=== PATIENT | female | born 1935 | race Caucasian/White ===

== ENCOUNTER 2019-12-26 19:05 | Inpatient (IN) | payer MEDICARE, BC ==
[~2019-12-26] VITALS: Ht 157.5 cm; Wt 50.3 kg
--- NOTE | 2019-12-26 19:15 | NUR ---
Patient BIB private ambulance from [facility] on 5150 hold for GD to be medically cleared to be transfered to MHU. Patient upon arrival easily agitated. A/Ox2. No distress noted.
[2019-12-26] MEDS ORDERED: ALLO300T2 PO (19:18)
[2019-12-26] MEDS ORDERED: INDO75CA3 PO (19:18)
[2019-12-26] MEDS ORDERED: ATOR40TA29 PO (19:18)
[2019-12-26] MEDS ORDERED: AMLO2.5T4 PO (19:18)
[2019-12-26] MEDS ORDERED: CARV6.25 PO (19:18)
[2019-12-26] MEDS ORDERED: ESCI5TAB PO (19:18)
--- NOTE | 2019-12-26 19:28 | NUR ---
MEDICALLY CLEARED BY DR HOOKER.
--- NOTE | 2019-12-26 20:35 | NUR ---
Transfered to MHU via gurny with no distress noted.
[2019-12-26] MEDS ORDERED: MAG HYDROX/AL HYDROX/SIMETH 30 ML LIQUID UDC PO PRN (20:45)
[2019-12-26] MEDS ORDERED: TEMAZEPAM 7.5 MG CAPSULE PO PRN (20:45)
[2019-12-26] MEDS ORDERED: LORAZEPAM 0.5 MG TABLET PO PRN (20:45)
[2019-12-26] MEDS ORDERED: MAGNESIUM HYDROXIDE 30 ML LIQUID UDC PO PRN (20:45)
[2019-12-26 21:01] VITALS: BP 163/99
--- NOTE | 2019-12-27 07:00 | NUR ---
Admitting Note GPS/NSG A 84 yr old female sent to [facility] on a 5150 for Grave Disability Under the care of Dr. Townsend psychiatrist and SILVIO Holt. Patient currently resides in [facility]. According to information provided by previous medical records as well as the hold patient has not slept, no eating, poor historian, refusing medication. Patient began to exhibit bizarre behavior with paranoid thoughts. Patient has history of Psychiatry. Upon arrival patient appeared to be alert to time, place, and situation however upon further discussion pt was abusive towards staff, patient was also giving tangental responses. Pt given Advisement and Patient Rights Handbook, as well as a verbal explanation of unit rules, patient was calm and cooperative during this process. Pt will require reinforcement and observation she is at risk for falls, bilateral hip replacement. To endorse to a.m. shift to notification of admission. Plan of Care inititiated and will continue to monitor for Safety.
[2019-12-27 07:37] LABS: ALANINE AMINOTRANSFERASE 7 U/L (14-59); ALKALINE PHOSPHATASE 61 U/L (50-136); ASPARTATE AMINOTRANSFERASE 12 U/L (15-37); BILIRUBIN,TOTAL 0.3 mg/dL (0.2-1.0); CARBON DIOXIDE 28 mmol/L (21-32); CHLORIDE 106 mmol/L (98-107); CREATININE 1.7 mg/dL (0.6-1.3); GLUCOSE 104 mg/dL (74-106); POTASSIUM 4.2 mmol/L (3.5-5.1); TOTAL PROTEIN, SERUM 6.7 g/dL (6.4-8.2); UREA NITROGEN, BLOOD 27 mg/dL (7-18)
[2019-12-27] MEDS: CARVEDILOL 6.25 MG TABLET PO SCH ×2 (08:00→18:00)
[2019-12-27] MEDS: AMLODIPINE 2.5 MG TABLET PO SCH (09:00)
[2019-12-27] MEDS ORDERED: INDOMETHACIN 75 MG PO SCH (09:00)
[2019-12-27] MEDS ORDERED: ALLOPURINOL 300 MG TABLET PO SCH (09:00)
--- NOTE | 2019-12-27 10:03 | NUR ---
Social Work Family Contact: This story writer attempted to contact both daughters and they were both unavailable. This story writer left a voicemail. Addendum: 12/27/19 at 1123 by STORM MARTINEZ Donald ([phone]) and Katie ([phone])
--- NOTE | 2019-12-27 10:03 | NUR ---
Social Work Initial Discharge Plan: [place] [address]; ([phone]). Patient's daughters Katie ([phone]) and Donald ([phone]) is involved in patient's care. This information writer attempted to contact both daughters and they were both unavailable. This information writer left a voicemail. This information writer contacted [facility] ([phone]) and stated that admin is unavailable at the moment and will contact this information writer back. This information writer will work with MD and treatment team to coordinate proper discharge plan.
--- NOTE | 2019-12-27 10:26 | NUR ---
Firearms Report: Theater Projectionist completed and submitted a [facility] firearms report for 5150 grave disability certification. A copy of report has been placed in patient chart.
--- NOTE | 2019-12-27 12:05 | NUR ---
Social Work Discharge Plan: This telegraphic typewriter operator chief spoke with Laney david ([phone]) from [facility] stated that upon discharge when pt is stable they will take pt back.
--- NOTE | 2019-12-27 13:26 | NUR ---
STORM Family Contact: SW spoke with patient's daughter Donald ([phone]) and discussed treatment plan and discharge plan.
[2019-12-27 15:14] VITALS: BP 146/88
[2019-12-27] MEDS: risperiDONE 0.5 MG TABLET PO SCH (21:00)
[2019-12-27] MEDS: ATORVASTATIN 40 MG TABLET PO SCH (21:03)
--- NOTE | 2019-12-28 03:43 | NUR ---
GPS/ Pt was received in bed a/ox3, no SOB, breathing even and no c/o pain. Pt denied SI or intent to harm self or others. Per endorsement pt had been refusing meds. At routine med pass pt refused Risperdal 0.5mg but took Lipitor, made aware of risk of refusing meds as order with acknowledged understanding. Pt requested a printing material for the medication before she will take it and was given but pt still refused. No aggressive behavior but Pt had been having angry, insulting and verbally abusive with some staffs and cooperative with others during this shift, refused vital check. Encouraged to vent out feelings and to request for technical staff assistant. At this time pt is resting and will continue monitor with Q/15 minute head count ongoing, and safety precaution in place.
--- NOTE | 2019-12-28 06:58 | NUR ---
Pt Risperdal 0.5mg was not given due to pt fall asleep.
[2019-12-28 07:30] VITALS: BP 133/76
--- NOTE | 2019-12-28 07:52 | NUR ---
GPS: Nursing Notes: Severe Agitation: Patient is awake and overly disruptive by constantly shouting, violent outburst without provocation, using racial statement toward staff, verbal abusive, threatening staff with a law nahun, resistant with nursing care, restless behavior, setting limits, but unable to be redirected, "You need to be fucking deported..", refusing her medications PO, "You are a fucken bastard..", continue to be overly disruptive by constantly shouting, refusing to eat, shouting for water when she has a bottle of water next to her, poor impulse control, poor anger management, gets easily irritable when redirected, continue with her abusive language toward staff, threatening staff, Dr. Kristian del valle, continue to monitor for safety, continue with treatment plan.
[2019-12-28] MEDS: CARVEDILOL 6.25 MG TABLET PO SCH ×2 (08:00→17:39)
[2019-12-28] MEDS ORDERED: HALOPERIDOL LACTATE 5 MG/1 ML VIAL IM ONE (08:00)
[2019-12-28] MEDS ORDERED: LORAZEPAM 2 MG/1 ML VIAL IM ONE (08:00)
[2019-12-28] MEDS: AMLODIPINE 2.5 MG TABLET PO SCH (08:12)
[2019-12-28] MEDS: risperiDONE 0.5 MG TABLET PO SCH ×2 (08:12→21:24)
--- NOTE | 2019-12-28 08:12 | NUR ---
GPS: Nursing Notes: Chemical Restraint: Patient continue to be overly disruptive by constantly shouting, poor anger management, poor impulse control, violent outburst without provocation, verbal abusive, threatening staff, using racial statements toward staff, "I am going to get you fucken deported.... Cock sucker..", loud and angry affect, restless behavior, trying to slap staff when getting near to assist her, setting limits, but unable to be redirected, R=18, Dr. Townsend called and ordered: Haldol 1mg IM and Ativan 1mg IM STAT for severe agitated behavior, medications IM given at this time, continue to monitor for safety, continue with treatment plan.
[2019-12-28] MEDS ORDERED: ALLOPURINOL 300 MG TABLET PO SCH (09:00)
[2019-12-28] MEDS ORDERED: HALOPERIDOL LACTATE 5 MG/1 ML VIAL IM STA (13:41)
[2019-12-28] MEDS ORDERED: LORAZEPAM 2 MG/1 ML VIAL IM STA (13:41)
[2019-12-28] MEDS ORDERED: HYDROCORTISONE 1% CREAM 30 GM TUBE TP PRN (13:45)
--- NOTE | 2019-12-28 13:45 | NUR ---
GPS: Nursing Notes: Severe Agitation: Violent outburst without provocation, throw milk and juice on staff face and body, verbally abusive toward staff, "Cock sucker...", resistant with nursing care, threatening staff, hitting staff when getting near her to assist her with ADL's, continue to refuse her medications PO, "Get away... Asshole..", gets easily irritable when redirected, setting limits, but unable to be redirected, restless behavior toward staff, Dr. Kristian del valle, continue to monitor for safety, continue with treatment plan.
[2019-12-28] MEDS ORDERED: MINERAL OIL/PETROLATUM,WHITE 57 GM TUBE TP PRN (14:00)
--- NOTE | 2019-12-28 14:00 | NUR ---
GPS: Nursing Notes: Chemical Restraint: Patient is awake and overly disruptive by constantly shouting profanities, throw milk and juice to staff face and body, verbal abusive, using profanities, and racial statements toward staff, violent outburst without provocation, poor impulse control, restless behavior, trying to hit staff when getting near her to assist her, continue to be refusing her PO medications, medications IM were given at this time, R=18, continue to monitor for safety, continue with treatment plan.
--- NOTE | 2019-12-28 14:06 | NUR ---
GPS: Nursing Notes: Reassessment of Chemical Restraint: Patient is responding to her name, became calm, but angry affect, resistant with nursing care, continue to refuse her medications PO, medications IM STAT were effective, R=18, continue to monitor for safety, continue with treatment plan. Addendum: 12/28/19 at 1414 by JUAN MANUEL BLEVINS LVN Above Nursing Notes: Reassessment of Chemical Restraint charting is for 08:32 hours
--- NOTE | 2019-12-28 14:30 | NUR ---
GPS: Nursing Notes: Reassessment of Chemical Restraint: Patient is awake and responding to her name, angry affect, but calmed, resistant with nursing care, refusing to participate in therapeutic groups, refusing her PO medications, continue to monitor for safety, R=18, medications IM were effective, continue with treatment plan.
[2019-12-28 16:00] VITALS: BP 164/96
[2019-12-28] MEDS: ATORVASTATIN 40 MG TABLET PO SCH (21:24)
--- NOTE | 2019-12-29 02:56 | NUR ---
RECEIVED PATIENT AWAKE IN BED.APPEARS DEPRESSED BUT BRIEFLY ENGAGED WITH STAFF. NO DISRUPTIVE BEHAVIOR NOTED THROUGH THE SHIFT. SHE TOOK HER MEDICATIONS WITH LOTS OF ENCOURAGEMENT.VISUAL CHECKS MADE ON HER FOR SAFETY.WILL CONTINUE TO MONITOR.
--- NOTE | 2019-12-29 06:33 | NUR ---
SHE SLEPT WELL FOR 9HOURS
[2019-12-29] MEDS: CARVEDILOL 6.25 MG TABLET PO SCH ×2 (08:00→17:28)
[2019-12-29] MEDS: AMLODIPINE 2.5 MG TABLET PO SCH (08:27)
[2019-12-29] MEDS: risperiDONE 0.5 MG TABLET PO SCH ×2 (08:27→20:45)
--- NOTE | 2019-12-29 15:20 | NUR ---
GPS: Nursing Notes: Non-compliance with Medication: Patient is awake and responding to her name, poor anger management, resistant with nursing care, doing angry gestures with her face when medication is offer to patient, refusing her medication, believes that there is nothing wrong with her, stated "I did not finish reading the material about the medication..Until then I will take that pill..", when asked how long would take her to finish reading the material, she stated "You deserve to be deported...", pressured speech and angry affect, believes that we do not care about her, unable to formulate a viable plan for self care, continue with treatment plan.
[2019-12-29 16:00] VITALS: BP 137/81
[2019-12-29] MEDS: ATORVASTATIN 40 MG TABLET PO SCH (20:14)
--- NOTE | 2019-12-29 20:46 | NUR ---
Patient refused 2100 dose of Risperidone. Educated patient on importance of taking the medication. Patient still refused.
[2019-12-30 07:30] VITALS: BP 121/66
[2019-12-30] MEDS: CARVEDILOL 6.25 MG TABLET PO SCH ×2 (08:41→17:16)
[2019-12-30] MEDS: AMLODIPINE 2.5 MG TABLET PO SCH (08:41)
[2019-12-30] MEDS: risperiDONE 0.5 MG TABLET PO SCH ×2 (08:42→20:43)
[2019-12-30] MEDS: prednisoLONE ACET 1% OPHT DROP 5 ML BOTTLE EACHEYE PRN ×2 (11:23→17:17)
[2019-12-30] MEDS: ACETAMINOPHEN 325 MG TABLET PO PRN (11:23)
--- NOTE | 2019-12-30 14:42 | NUR ---
GPS: Nursing Care: Non-Compliance with Medication: Patient is awake and responding to her name, refusing her Risperdal tablet, stated "No, I am not going to take it because I do not agree with the doctor..", needy at times, refusing to participate in therapeutic groups, ambulatory with fww, continue to monitor for safety, unable to formulate a viable plan for self care, continue with treatment plan.
[2019-12-30 16:00] VITALS: BP 138/62
[2019-12-30 20:00] VITALS: BP 151/79
[2019-12-30] MEDS: ATORVASTATIN 40 MG TABLET PO SCH (20:43)
--- NOTE | 2019-12-31 03:53 | NUR ---
RECEIVED PATIENT AWAKE IN BED. APPEARS DEPRESSED BUT BRIEFLY ENGAGED WITH STAFF. NO DISRUPTIVE BEHAVIOR NOTED THROUGH THE SHIFT. SHE IS MED SELECTIVE. SHE CLAIMS THE RISPERDAL "IS IN DISPUTE AND SINCE AM AN LATEX CASTER WE WILL SEE HOW THAT GOES.' RISKS AND BENEFIT EXPLAINED.VISUAL CHECKS MADE ON HER FOR SAFETY.WILL CONTINUE TO MONITOR.
[2019-12-31] MEDS: PANTOPRAZOLE SODIUM 40 MG TABLET.DR PO SCH ×2 (06:32→06:33)
--- NOTE | 2019-12-31 06:44 | NUR ---
SLEPT FOR 5:30 HOURS. CONTINUES TO REFUSE HER MEDICATIONS.
[2019-12-31 07:30] VITALS: BP 113/76
[2019-12-31] MEDS: LINAGLIPTIN 5 MG TABLET PO SCH (08:44)
[2019-12-31] MEDS: prednisoLONE ACET 1% OPHT DROP 5 ML BOTTLE EACHEYE PRN ×2 (08:44→17:26)
[2019-12-31] MEDS: risperiDONE 0.5 MG TABLET PO SCH ×2 (08:44→20:52)
[2019-12-31] MEDS: CARVEDILOL 6.25 MG TABLET PO SCH ×2 (09:17→17:26)
[2019-12-31] MEDS: AMLODIPINE 2.5 MG TABLET PO SCH (09:17)
[2019-12-31 12:58] LABS: BASOPHILS # (AUTO) 0.2 K/uL (0.0-8.0); BASOPHILS % (AUTO) 1.5 % (0.0-2.0); EOSINOPHILS # (AUTO) 1.2 K/uL (0.0-0.7); HEMATOCRIT 40.9 % (31.2-41.9); HEMOGLOBIN 13.4 g/dL (10.9-14.3); LYMPHOCYTES # (AUTO) 2.9 K/uL (20.0-40.0); LYMPHOCYTES % (AUTO) 19.5 % (20.5-51.5); MEAN CORPUSCULAR HEMOGLOBIN 29.3 uug (24.7-32.8); MEAN CORPUSCULAR HGB CONC 33 g/dL (32.3-35.6); MEAN CORPUSCULAR VOLUME 89.3 fL (75.5-95.3); MONOCYTES # (AUTO) 1.1 K/uL (2.0-10.0); MONOCYTES % (AUTO) 7.2 % (0.0-11.0); NEUTROPHILS # (AUTO) 9.6 K/uL (1.8-8.9); NEUTROPHILS % (AUTO) 63.8 % (38.5-71.5); PLATELET COUNT (AUTO) 330 K/uL (179-408); RED BLOOD CELL COUNT(AUTO) 4.57 MIL/uL (3.63-4.92)
[2019-12-31 13:18] LABS: ALANINE AMINOTRANSFERASE 11 U/L (14-59); ALKALINE PHOSPHATASE 59 U/L (50-136); ASPARTATE AMINOTRANSFERASE 13 U/L (15-37); BILIRUBIN,TOTAL 0.4 mg/dL (0.2-1.0); CARBON DIOXIDE 26 mmol/L (21-32); CHLORIDE 105 mmol/L (98-107); CREATININE 1.6 mg/dL (0.6-1.3); GLUCOSE 110 mg/dL (74-106); MAGNESIUM 1.9 mg/dL (1.8-2.4); PHOSPHOROUS 3.6 mg/dL (2.5-4.9); POTASSIUM 4.5 mmol/L (3.5-5.1); UREA NITROGEN, BLOOD 24 mg/dL (7-18)
[2019-12-31] MEDS: ACETAMINOPHEN 325 MG TABLET PO PRN (14:53)
[2019-12-31 16:00] VITALS: BP 109/72
--- NOTE | 2019-12-31 17:11 | NUR ---
patient argumentative and verbally abusive to staff, non cooperative, needed alot of redirection patient not taking any of her psych medication, RIESE hearing schedule tomorrow at 1200 MD aware
[2019-12-31] MEDS: ACETAMINOPHEN/CODEINE 300-30 MG TABLET PO PRN (17:31)
--- NOTE | 2019-12-31 17:45 | NUR ---
GPS: Nursing Notes: Non-Compliance With Medication: Patient is awake and responding to her name, gets easily irritable when redirected, verbal abusive, using profanity toward staff constantly, "Cock sucker.. Fat pig...", "You are low life asshole..", constantly making derogatory remarks toward staff, refusing her Risperdal PO, overly demanding at times, taking her antihypertensive medication, but throwing the cup on the floor stating "Pick it up... That is your job.. Fat pig... Cock sucker..", redirected, but stating "Shut the fuck up..", trying to scratch staff on the face, trying to scratch the other staff on the arm, poor anger management, unable to formulate a viable plan for self care, continue with treatment plan.
[2019-12-31 20:41] VITALS: BP 124/67
[2019-12-31] MEDS: ATORVASTATIN 40 MG TABLET PO SCH (20:46)
[2020-01-01] MEDS: PANTOPRAZOLE SODIUM 40 MG TABLET.DR PO SCH (07:00)
[2020-01-01 07:30] VITALS: BP 118/55
[2020-01-01] MEDS: ACETAMINOPHEN/CODEINE 300-30 MG TABLET PO PRN ×2 (07:32→15:56)
[2020-01-01] MEDS: risperiDONE 0.5 MG TABLET PO SCH ×2 (08:34→21:31)
[2020-01-01] MEDS: LINAGLIPTIN 5 MG TABLET PO SCH (08:34)
[2020-01-01] MEDS: CARVEDILOL 6.25 MG TABLET PO SCH ×2 (08:35→17:17)
[2020-01-01] MEDS: AMLODIPINE 2.5 MG TABLET PO SCH (08:35)
--- NOTE | 2020-01-01 09:00 | NUR ---
patient is sitting in her bed, awake, no sob, resp even nonlabored, skin warm and dry to touch, finished her breakfast, offered medication, patient stated she does not want to take her risperdal, come back, patient noted with irritable, rude, respectful and sarcastic behaviour, upon this health technical writer introduction to patient, patient reacted sarcastic way. will come back to offer her risperdal again.
--- NOTE | 2020-01-01 10:00 | NUR ---
offered patient Risperdal again, patient was not ready to take it, risks, benefit and next plan of care explained to patient, patient agreed to take her Risperdal. administered.
[2020-01-01 10:17] LABS: *BILIRUBIN,URIN NEGATIVE (NEGATIVE); *BLOOD, URINE NEGATIVE (NEGATIVE); *CLARITY,URINE SLIGHTLY CLOUDY (CLEAR); *COLOR,URINE YELLOW (YELLOW); *KETONES,URINE NEGATIVE (NEGATIVE); *UROBILINOGEN,URINE 0.2 E.U./dl (NORMAL); LEUKOCYTE ESTERASE ,URINE TRACE (NEGATIVE); NITRITE, URINE NEGATIVE (NEGATIVE); UGLUCOSE NEGATIVE (NEGATIVE)
[2020-01-01 13:54] LABS: BACTERIA,URINE FEW /HPF (NONE SEEN); RBC,URINE NONE SEEN /HPF (0-3); SQUAMOUS EPITHELIAL CELL,UR FEW /HPF (NONE SEEN); WBC,URINE 0-3 /HPF (0-3)
--- NOTE | 2020-01-01 14:51 | NUR ---
STORM Individual Therapy: This director underwriter sales met with pt to provide brief counseling. Pt appeared to be angry. Pt did not want to have a conversation with this director underwriter sales at the moment. This director underwriter sales was unable to conduct counseling at the moment.
--- NOTE | 2020-01-01 15:23 | NUR ---
SW Discharge Plan: This health underwriter spoke with Laney admin ([phone]) from [facility] stated that they have covid patient's at the moment and do not have a negative bed available. Per Laney, he stated that they are unable to take pt back. This health underwriter found alternative placement for pt. Pt is accepted at [facility]. Per admin Tracy ([phone]) stated pt is accepted.
--- NOTE | 2020-01-01 15:47 | NUR ---
STORM Family Contact: STORM spoke with patient's daughter Donald ([phone]) and left a voicemail to call back this telegraphic typewriter operator to discuss discharge plan.
[2020-01-01 16:00] VITALS: BP 126/71
--- NOTE | 2020-01-01 18:32 | NUR ---
no aggressive or combative behavior noted, however noted with rude, demanding, using inappropriate language to staff, needs met, kept safe, denied suicidal thoughts, continue to monitor according to unit protocol, no acute distress noted
[2020-01-01 20:24] VITALS: BP 125/61
[2020-01-01] MEDS: ATORVASTATIN 40 MG TABLET PO SCH (21:31)
--- NOTE | 2020-01-02 04:57 | NUR ---
Patient is calm and cooperative. Med compliant. Patient needs assistance going to the bathroom. No behavioral issue. Patient will remain in a psych facility for further evaluation and treatment.
[2020-01-02] MEDS: PANTOPRAZOLE SODIUM 40 MG TABLET.DR PO SCH (06:13)
[2020-01-02 07:30] VITALS: BP 112/51
--- NOTE | 2020-01-02 08:00 | NUR ---
Patient received in room, AAO x 3-4, No acute distress noted. Vital sign stable and will continue with care.
[2020-01-02] MEDS: AMLODIPINE 2.5 MG TABLET PO SCH (09:49)
[2020-01-02] MEDS: risperiDONE 0.5 MG TABLET PO SCH ×2 (09:49→20:54)
[2020-01-02] MEDS: LINAGLIPTIN 5 MG TABLET PO SCH (09:49)
[2020-01-02] MEDS: CARVEDILOL 6.25 MG TABLET PO SCH ×2 (09:50→17:22)
[2020-01-02] MEDS: prednisoLONE ACET 1% OPHT DROP 5 ML BOTTLE EACHEYE PRN (09:51)
[2020-01-02 16:00] VITALS: BP 137/73
--- NOTE | 2020-01-02 18:21 | NUR ---
Patient is AAO x 3, able to express needs verbally. No acute distress noted. Vital signs stable. Denies any SI during shift. Patient was compliant throughout shift with care and medication therapy. Patient still noted getting angry at times while giving care also stating "I don't like you" to other staff members. Patient aware of discharge planning for tomorrow and stated feeling happy. All other needs attended, safety measures in place and will continue with care.
[2020-01-02 20:00] VITALS: BP 125/60
[2020-01-02] MEDS: ATORVASTATIN 40 MG TABLET PO SCH (20:54)
[2020-01-03] MEDS: PANTOPRAZOLE SODIUM 40 MG TABLET.DR PO SCH (06:54)
--- NOTE | 2020-01-03 06:54 | NUR ---
Patient refused 0900 dose of Protonix
[2020-01-03 07:30] VITALS: BP 112/65
--- NOTE | 2020-01-03 08:06 | NUR ---
Social Work Discharge Note: Cassidy: Patient will be discharged to jail facility, [facility] [address] [place] [address]; ) via Ambulance transportation at 12PM. Manager Wind spoke with Jocelynn Sheet Metal Operator at [facility]; ([phone]), who stated patient will be accepted back at facility today. Patients daughter Donald ([phone]) is aware and agreeable with discharge. Patient is alert and oriented x2-3 and is unable to plan for self-care. Patient denies any suicidal or homicidal ideation. Patient is aware and agreeable with discharge plans. Patient will continue to follow-up with (Psychiatrist) Dr. Martinez and (Fashion Model) Dr. Blevins at [facility] [address] [place] [address]; ). Patient presents with euthymic mood and congruent affect.
--- NOTE | 2020-01-03 08:54 | NUR ---
SW Family Contact: This bid writer contacted patient's daughter Donald ([phone]) and left a voicemail that pt will be discharged today to [facility].
[2020-01-03] MEDS: AMLODIPINE 2.5 MG TABLET PO SCH (09:01)
[2020-01-03] MEDS: LINAGLIPTIN 5 MG TABLET PO SCH (09:01)
[2020-01-03] MEDS: risperiDONE 0.5 MG TABLET PO SCH (09:01)
[2020-01-03 09:02] VITALS: BP 112/65
[2020-01-03] MEDS: CARVEDILOL 6.25 MG TABLET PO SCH (09:02)
[2020-01-03] MEDS ORDERED: HYDROCORTISONE 2.5% CREAM 20 GM TUBE TOP ONE (11:30)
--- NOTE | 2020-01-03 13:53 | NUR ---
pt discharged to [facility].all belonings sent with patient. Pt Given dc instructions. Report given to receiving nurse. No signs of complications upon discharge.
== END 2020-01-03 13:30 | DRG 885 ==
LOC: ER 19:05 → GPS 20:11
PROVIDERS: ADMIT Psychiatry & Neurology Psychiatry; ATTEND Family Medicine
DX: F29 Unspecified psychosis not due to a substance or known physiological condition (principal); N17.0 Acute kidney failure with tubular necrosis; N18.9 Chronic kidney disease, unspecified; E44.0 Moderate protein-calorie malnutrition; C7A.8 Other malignant neuroendocrine tumors; E11.9 Type 2 diabetes mellitus without complications; D3A.8 Other benign neuroendocrine tumors; D72.829 Elevated white blood cell count, unspecified; G89.29 Other chronic pain; I25.10 Atherosclerotic heart disease of native coronary artery without angina pectoris; M19.90 Unspecified osteoarthritis, unspecified site; Z73.6 Limitation of activities due to disability; M54.30 Sciatica, unspecified side; M10.9 Gout, unspecified; Z68.20 Body mass index [BMI] 20.0-20.9, adult; I12.9 Hypertensive chronic kidney disease with stage 1 through stage 4 chronic kidney disease, or unspecified chronic kidney disease; Z95.0 Presence of cardiac pacemaker
CPT/HCPCS: 36415; 83735; 84100; 85025; 87086; J1630; J2060; J2650